=== PATIENT | female | born 1980 ===

== ENCOUNTER 2018-04-21 16:23 | Emergency (ER) | payer OTHER ==
[~2018-04-21] VITALS: Ht 167.6 cm; Wt 61.2 kg
[~2018-04-21 16:23] MED LIST: ALLEGRA ALLERG180 MG PO; AMOX1TAB5 PO; ATARAX25 MG PO; BACTROBAN OINT22 GM; CLEOCIN 30300 MG/50; CORTISPORIN EAR10 M1 OT
== END 2018-04-21 19:45 | disposition home or self-care (01) ==
LOC: ER 16:23
DX: M54.5 Low back pain (principal)

== ENCOUNTER 2018-05-01 21:12 | Emergency (ER) | payer OTHER ==
[~2018-05-01] VITALS: Ht 165.1 cm; Wt 61.2 kg
[2018-05-02] MEDS ORDERED: CEFUROXIME500 MG PO (01:58)
== END 2018-05-02 02:07 | disposition home or self-care (01) ==
LOC: ER 21:12
DX: S20.212A Contusion of left front wall of thorax, initial encounter (principal); W23.0XXA Caught, crushed, jammed, or pinched between moving objects, initial encounter; Y93.89 Activity, other specified; Y92.89 Other specified places as the place of occurrence of the external cause; Y99.8 Other external cause status; N39.0 Urinary tract infection, site not specified